=== PATIENT | female | born 1945 | race Caucasian/White ===

== ENCOUNTER 2020-12-25 13:57 | Emergency (ER) | payer MEDICARE, SELFPAY ==
[2020-12-25] VITALS (7 sets, daily range): BP systolic 105–150; BP diastolic 54–90; PULSE 85–130; RESP 18; TEMP 36.7–36.9; O2SAT 96–98; BMI 31.6
--- NOTE | 2020-12-25 | ECG_ITS ---
Test Reason : CHEST PAIN Blood Pressure : / mmHG Vent. Rate : 091 BPM Atrial Rate : 091 BPM P-R Int : 140 ms QRS Dur : 082 ms QT Int : 430 ms P-R-T Axes : 036 016 066 degrees QTc Int : 530 ms Normal sinus rhythm Low voltage QRS Nonspecific ST changes Borderline ECG When compared with ECG of 25-DEC-2020 17:06, QT has lengthened Referred By: Steffany Rothman Electronically Signed By:Cole Champagne
--- NOTE | ~2020-12-25 | XR_ITS ---
EXAMINATION: XR CHEST CLINICAL INFORMATION: Lightheadedness COMPARISON: Previous chest and right rib x-ray July 2019 TECHNIQUE: Frontal view of the chest was obtained. FINDINGS: The cardiac and mediastinal contours are stable. The lungs are clear. There is no pleural effusion or pneumothorax. There is a thoracolumbar scoliosis. Bony structures are otherwise unremarkable. XR/XR chest 1V IMPRESSION: No evidence for acute disease in chest.
--- NOTE | 2020-12-25 15:37 | ECG_ITS ---
Test Reason : CHEST PAIN Blood Pressure : / mmHG Vent. Rate : 089 BPM Atrial Rate : 089 BPM P-R Int : 142 ms QRS Dur : 084 ms QT Int : 390 ms P-R-T Axes : 037 016 065 degrees QTc Int : 474 ms Normal sinus rhythm Low voltage QRS Borderline ECG When compared with ECG of 24-JUL-2019 08:11, Vent. rate has increased BY 47 BPM QT has lengthened Referred By: Steffany Rothman Electronically Signed By:Cole Champagne
--- NOTE | 2020-12-25 15:41 | ED.GENADULT ---
HPI - General Adult General Chief complaint: General Medical Stated complaint: Nausea/vomitting/diarrea Time Seen by Provider: 12/25/20 15:25 Source: patient Mode of arrival: ambulatory History of Present Illness HPI narrative: 75-year-old female with a past medical history of MDD, familial tremor, anxiety, achalasia, abscess, presenting to the ED complaining nausea/ vomiting x1 week, and 3 large episodes of black diarrhea today. Admits to feeling lightheaded/presyncopal during BMs. Reports decreased p.o. intake. Also reports mechanical trip and fall over a fan 2 weeks ago, admits hit her head, denies LOC. Does take baby ASA. Also reports exertional SOB. Denies CP, abdominal pain, constipation, dysuria/hematuria, visual change Onset (ago): day(s) Related Data Allergies Allergy/AdvReac Type Severity Reaction Status Date / Time penicillin V Allergy Intermediate Rash Verified 12/25/20 14:02 Penicillins [PENICILLINS] Allergy Intermediate HIVES,RASH Verified 12/25/20 14:02 Review of Systems Review of Systems: Constitutional: No Fever, No Chills,+Fatigue, No Malaise ENT/Mouth: No Hearing loss, No Swallowing Difficulty Eyes: No Eye Pain, No Vision Changes Cardiovascular: No Chest Pain, No SOB, + Dyspnea on Exertion, No Edema Respiratory: No Cough, No Dyspnea Gastrointestinal: + Nausea, + Vomiting, + Diarrhea, No Constipation, No Abdominal pain, No Hematochezia, + Melena Genitourinary: No Dysuria, No Urinary Frequency, No Hematuria Musculoskeletal: No joint pain, No Myalgias Skin: No Skin Lesions, No rash Neuro: No Weakness, No Numbness, No Loss of Consciousness, + lightheadedness, No Headache Yes all other systems are reviewed and are negative Neurologic: Denies Abnormal speech present PMFSH Past Medical History Attestation statement: The following information was validated with the patient. Medical History (Updated 12/25/20 @ 23:30 by REBECA Del Valle) Abscess Achalasia Anxiety Familial tremor MDD (major depressive disorder) Surgical History (Updated 12/25/20 @ 14:09 by Kristi Mccarty RN) History of surgery on arm Social History Social History Alcohol intake: never Smoked in Last 30 Days: No Use of substances other than those prescribed or required for medical reasons: No Advance Directives: Yes Advance Directives Information Provided: Yes Advance Directives on File: No Physical Exam Vital Signs: Vital Signs: Last Vital Signs Temp 98.0 F 12/25/20 16:00 Pulse 104 H 12/25/20 23:19 Resp 18 12/25/20 19:25 BP 150/68 H 12/25/20 23:19 Pulse Ox 98 12/25/20 19:25 Body Mass Index 31.6 Const: General: cooperative, healthy appearing, no acute distress, well developed, alert and awake Orientation/consciousness: patient oriented x3 Limitations: no limitations HENMT: Head: Yes normal to inspection Ears: hearing grossly normal bilaterally General nose exam: Normal external nose present Face and sinus: Yes normal facial exam Mouth: Normal oral and palatal mucosa present Throat: Yes posterior oropharynx normal and Yes uvula midline Eyes: General: appearance normal, both eyes and all related structures Pupils: Equal, round and reactive pupils present EOM: EOMs intact bilaterally Neck: Neck: Yes normal visual inspection and Yes no meningeal signs Resp: Effort & Inspection: normal respiratory effort Auscultation: clear to auscultation bilaterally, no rales, no rhonchi and no wheezes Cardio: Rate: regular rate Heart sounds: S1 normal heart sound present and S2 normal heart sound present GI: Inspection: Yes normal to inspection Palpation (GI): Soft to palpation, nontender, no guarding and not rigid Skin: Wounds: no wounds Neuro: General: patient oriented x3, gait normal, tone normal, moves all extremities, no meningeal signs, no focal motor deficits and CN's II-XI intact bilaterally Cranial nerves: Yes Equal, round and reactive pupils present Cognition (Neuro): normal cognition Speech: No Abnormal speech present Gait exam (Neuro): Normal gait present Motor exam (neuro): 5/5 motor strength present throughout and Pronator motor function not present Coordination: [id number] test normal Romberg Test: Negative Extrem: General: Yes normal to inspection and Yes no pedal edema Course Course Course Narrative: -no leukocytosis, H&H stable XR chest 1V IMPRESSION: No evidence for acute disease in chest. -182--potassium slightly low at 3.2 > 40 mEq p.o. repletion ordered Orthostatic vital signs positive will repeat after IVF -2311--repeat troponin without 50% rise, PA unlikely -2325--repeat orthostatic vital signs negative. Results discussed with patient including worrisome signs and symptoms and strict return precautions. Discussed with patient she needs to have close follow-up with her PCP, she verbalized understanding feel safe for discharge home. Patient unable to give urine sample in the ED Medical Decision Making MDM Narrative Medical decision making narrative: 75-year-old female with a past medical history of MDD, familial tremor, anxiety, achalasia, abscess, presenting to the ED complaining nausea/ vomiting x1 week, and 3 large episodes of black diarrhea today. Admits to feeling lightheaded/presyncopal during BMs. On exam mildly tachycardic, NAD/nontoxic appearing, no focal neuro deficits, abdomen soft/nontender. Concern for GI bleed vs gastroenteritis vs dehydration vs vasovagal symptoms. Rule out infectious etiology. Low concern for ICH/fracture with fall 2 weeks ago and exam nonfocal. Plan: EKG, labs, UA, occult stool, CXR, IVF, symptomatic treatment, reassess Lab Data Result diagrams: 12/25/20 16:22 12/25/20 16:53 Labs: Lab Results 12/25/20 12/25/20 12/25/20 Range/Units 16:22 16:23 16:27 WBC 10.6 (4.8-10.8) X10*3/uL RBC 5.18 (4.20-5.50) X10*6/uL Hgb 15.0 (12.0-16.0) g/dl Hct 44.1 (37-47) % MCV 85.1 (80-98) fL MCH 29.0 (27.0-33.0) pg MCHC 34.0 (31.0-35.0) g/dl RDW 14.5 (11.0-16.0) % Plt Count 385 (160-400) X10*3/uL MPV 9.7 (9.4-12.3) fL Immature Gran % (Auto) 0.5 H (0.0-0.4) % Neut % (Auto) 67.4 (45-73) % Lymph % (Auto) 19.5 L (20-40) % [place] % (Auto) 12.3 H (2-11) % Eos % (Auto) 0.0 (0-4) % Baso % (Auto) 0.3 (0-2) % Lymph # (Auto) 2.1 (1.2-4.9) X10*3/uL [place] # (Auto) 1.3 H (0.1-1.2) X10*3/uL Eos # (Auto) 0.0 (0.0-0.4) X10*3/uL Baso # (Auto) 0.0 (0.0-0.2) X10*3/uL Abs Immat Gran (auto) 0.05 H (0.00-0.03) X10*3/uL Absolute Neuts (auto) 7.2 (2.0-8.3) X10*3/uL Absolute Nucleated RBC 0.000 (0.0-0.012) X10*3/uL Nucleated RBC % (auto) 0.0 (0.0-0.2) /100WBC PT 11.9 (9.9-13.0) SEC INR 1.0 (0.9-1.1) APTT 27.1 (24.1-38.0) SEC Sodium (135-145) mmol/L Potassium (3.3-5.1) mmol/L Chloride (96-108) mmol/L Carbon Dioxide (22-29) mmol/L Anion Gap (12-20) BUN (9-16) mg/dL Creatinine (0.5-1.4) mg/dL Estim Creat Clear Calc Estimated GFR Random Glucose (60-115) mg/dL Calcium (8.4-10.2) mg/dL Magnesium (1.6-2.6) mg/dL Total Bilirubin (0.0-1.0) mg/dL Direct Bilirubin (0.0-0.5) mg/dL AST (5-31) U/L ALT (0-31) U/L Alkaline Phosphatase (39-117) U/L Troponin I High Sens (<3.5-17.0) ng/L Total Protein (6.5-8.0) g/dL Albumin (3.5-5.0) g/dL Lipase (8-78) U/L Stool Occult Blood NEGATIVE (NEGATIVE) 12/25/20 12/25/20 12/25/20 Range/Units 16:53 18:46 22:25 WBC (4.8-10.8) X10*3/uL RBC (4.20-5.50) X10*6/uL Hgb (12.0-16.0) g/dl Hct (37-47) % MCV (80-98) fL MCH (27.0-33.0) pg MCHC (31.0-35.0) g/dl RDW (11.0-16.0) % Plt Count (160-400) X10*3/uL MPV (9.4-12.3) fL Immature Gran % (Auto) (0.0-0.4) % Neut % (Auto) (45-73) % Lymph % (Auto) (20-40) % [place] % (Auto) (2-11) % Eos % (Auto) (0-4) % Baso % (Auto) (0-2) % Lymph # (Auto) (1.2-4.9) X10*3/uL [place] # (Auto) (0.1-1.2) X10*3/uL Eos # (Auto) (0.0-0.4) X10*3/uL Baso # (Auto) (0.0-0.2) X10*3/uL Abs Immat Gran (auto) (0.00-0.03) X10*3/uL Absolute Neuts (auto) (2.0-8.3) X10*3/uL Absolute Nucleated RBC (0.0-0.012) X10*3/uL Nucleated RBC % (auto) (0.0-0.2) /100WBC PT (9.9-13.0) SEC INR (0.9-1.1) APTT (24.1-38.0) SEC Sodium 140 (135-145) mmol/L Potassium 3.2 L (3.3-5.1) mmol/L Chloride 107 (96-108) mmol/L Carbon Dioxide 22 (22-29) mmol/L Anion Gap 14 (12-20) BUN 16 (9-16) mg/dL Creatinine 0.78 (0.5-1.4) mg/dL Estim Creat Clear Calc 69.6 Estimated GFR > 60 Random Glucose 104 (60-115) mg/dL Calcium 8.4 (8.4-10.2) mg/dL Magnesium 1.9 (1.6-2.6) mg/dL Total Bilirubin 0.5 (0.0-1.0) mg/dL Direct Bilirubin 0.3 (0.0-0.5) mg/dL AST 21 (5-31) U/L ALT 23 (0-31) U/L Alkaline Phosphatase 79 (39-117) U/L Troponin I High Sens 8.4 8.1 (<3.5-17.0) ng/L Total Protein 5.6 L (6.5-8.0) g/dL Albumin 3.5 (3.5-5.0) g/dL Lipase 11 (8-78) U/L Stool Occult Blood (NEGATIVE) ECG Data Attestation: I personally reviewed and interpreted this ECG as follows: Interpretation: EKG normal sinus rhythm with a rate of 91. Low-voltage QRS. Nonischemic/no STEMI Discharge Plan Discharge Clinical Impression: Nausea & vomiting, Diarrhea Patient Disposition: Home, Self-Care Instructions: Gastroenteritis (ED) Additional Instructions: Your blood work was reassuring today in the emergency department It is very important that you stay hydrated at home, drink plenty of fluids, electrolytes, Gatorade/hours You need to follow-up with her primary care doctor Follow-up with GI as needed If her symptoms persist or worsen you have constant worsening nausea, vomiting, or diarrhea please return to the ED immediately Referrals: Olivier Noonan MD [Physician] - 3 days Chris Mcfarlane MD [Primary Care Provider] - 2 days
[2020-12-25] MEDS: ondansetron HCL 4 MG/2 ML VIAL IVPUSH (16:05)
[2020-12-25] MEDS: 0.9 % Sodium Chloride 1,000 ML 999 ML IVCONT ×2 (16:05→18:13)
[2020-12-25] MEDS: Famotidine/PF 20 MG/2 ML VIAL IVPUSH (16:05)
[2020-12-25] MEDS: Magnesium Hydrox/Alum Hydrox 30 ML ORAL.SUSP PO (16:05)
--- NOTE | 2020-12-25 16:31 | PC.NURSE ---
Iv started, labs sent. IVf started.
[2020-12-25 16:33] LABS: MANUAL DIFF FLAG NO
[2020-12-25 16:34] LABS: Basophils Percent Auto 0.3 % (0-2); Hematocrit 44.1 % (37-47); Imm Gran Abs Auto 0.05 X10*3/uL (0.00-0.03); Imm Gran Pct Auto 0.5 % (0.0-0.4); Lymphocytes Absolute Auto 2.1 X10*3/uL (1.2-4.9); Lymphocytes Percent Auto 19.5 % (20-40); Mean Corpuscular Volume 85.1 fL (80-98); Mean Platelet Volume 9.7 fL (9.4-12.3); Monocytes Absolute Auto 1.3 X10*3/uL (0.1-1.2); Monocytes Percent Auto 12.3 % (2-11); Neutrophils Absolute Auto 7.2 X10*3/uL (2.0-8.3); Neutrophils Percent Auto 67.4 % (45-73); Platelet Count 385 X10*3/uL (160-400); Red Blood Count 5.18 X10*6/uL (4.20-5.50); Red Cell Distribution Width 14.5 % (11.0-16.0); White Blood Count 10.6 X10*3/uL (4.8-10.8)
[2020-12-25 16:35] LABS: OBS Int Ctl Valid YES; OBS1 NEGATIVE (NEGATIVE)
[2020-12-25 16:41] LABS: Prothrombin Time 11.9 SEC (9.9-13.0)
[2020-12-25 16:44] LABS: Partial Thromboplastin Time 27.1 SEC (24.1-38.0)
[2020-12-25 17:24] LABS: Alanine Aminotransferase 23 U/L (0-31); Albumin Level 3.5 g/dL (3.5-5.0); Alkaline Phosphatase 79 U/L (39-117); Anion Gap 14 (12-20); Aspartate Amino Transferase 21 U/L (5-31); Bilirubin Direct 0.3 mg/dL (0.0-0.5); Bilirubin Total 0.5 mg/dL (0.0-1.0); Blood Urea Nitrogen 16 mg/dL (9-16); Calcium 8.4 mg/dL (8.4-10.2); Carbon Dioxide 22 mmol/L (22-29); Chloride 107 mmol/L (96-108); Creatinine Clr Calc Pharmacy 69.6; Estimated Glomerular Filt Rate > 60; Glucose Random 104 mg/dL (60-115); Lipase 11 U/L (8-78); Magnesium 1.9 mg/dL (1.6-2.6); Potassium 3.2 mmol/L (3.3-5.1); Sodium 140 mmol/L (135-145); Total Protein 5.6 g/dL (6.5-8.0)
[2020-12-25] MEDS: Potassium Chloride Packet 20 MEQ PACKET 40 MEQ PO (18:33)
[2020-12-25 19:18] LABS: Troponin-I High Sensitivity 8.4 ng/L (<3.5-17.0)
[2020-12-25 22:54] LABS: Troponin-I High Sensitivity 8.1 ng/L (<3.5-17.0)
== END 2020-12-25 23:57 | disposition home or self-care (01) ==
PROVIDERS: Physician Assistant; Emergency Provider Internal Medicine; PCP Internal Medicine
DX: R11.2 Nausea with vomiting, unspecified (principal); R19.7 Diarrhea, unspecified; E87.6 Hypokalemia; Z79.82 Long term (current) use of aspirin
CPT/HCPCS: 36415; 71045; 80048; 80076; 82272; 83690; 83735; 84484; 85025; 85610; 85730; 93005; 96361; 96374; 96375; 99285; J2405

== ENCOUNTER 2021-01-17 11:29 | Emergency (ER) | payer MEDICARE, SELFPAY ==
--- NOTE | ~2021-01-17 | XR_ITS ---
EXAMINATION: XR CHEST CLINICAL INFORMATION: Weakness COMPARISON: Previous chest x-ray most recent 12/25/2020 TECHNIQUE: Frontal view of the chest was obtained. FINDINGS: The cardiac and mediastinal contours are stable. The lungs are clear. There is no pleural effusion or pneumothorax. There is a thoracolumbar scoliosis. Bony structures are otherwise unremarkable. XR/XR chest 1V IMPRESSION: No evidence for acute disease in the chest.
--- NOTE | ~2021-01-17 | CT_ITS ---
EXAMINATION: CT ABDOMEN AND PELVIS WITH CONTRAST CLINICAL INFORMATION: Intermittent vomiting and diarrhea COMPARISON: None TECHNIQUE: Multidetector volumetric images were obtained from the superior aspect of the liver through the pubic symphysis following administration 85 mL of Omnipaque 350 intravenous contrast. Sagittal and coronal reformatted images were obtained on the technologist's workstation. Oral contrast: Yes This CT examination was performed using dose optimization techniques as appropriate, variously including the following: *Automated exposure control *Adjustment of mA and/or kV according to patient size (this includes techniques or standardized protocols for targeted exams where dose is matched to indication/reason for exam; i.e. extremities or head) *Use of iterative reconstruction technique DLP: 588 mGy-cm FINDINGS: LUNG BASES: The lung bases are clear. LIVER, GALLBLADDER, AND BILIARY TREE: The liver is normal in size, shape, and attenuation. No focal hepatic lesion or biliary ductal dilatation is present. The gallbladder is unremarkable with no evidence of radiopaque gallstones, gallbladder wall thickening, or obvious pericholecystic inflammatory changes. PANCREAS: Unremarkable. SPLEEN: Unremarkable. ADRENAL GLANDS: Unremarkable. KIDNEYS AND URETERS: There are bilateral renal peripelvic cysts, left greater than right. Kidneys are otherwise unremarkable. BLADDER: Unremarkable. GASTROINTESTINAL TRACT: There is diverticulosis of the colon. No evidence of diverticulitis is seen. There is question of mild bowel wall thickening or colitis of the colon, particularly involving the proximal colon. Bowel is normal in caliber without evidence of obstruction. Small and large bowel is otherwise unremarkable. The appendix is unremarkable. There is a large esophageal hernia. ABDOMINAL WALL: No significant hernia is appreciated. LYMPH NODES: Normal. VASCULAR: Unremarkable. PELVIC VISCERA: There is low-attenuation seen centrally in the uterus suggestive of endometrial fluid or thickening. Endometrial thickness measures 1 cm which is abnormally thickened for a postmenopausal patient. OSSEOUS STRUCTURES: There is curvature of the lumbar spine to the left. Degenerative disc disease at L5-S1. CT/CT abdomen pelvis w con IMPRESSION: Question mild colitis. Diverticulosis. No evidence of diverticulitis. Abnormally thickened endometrium for a postmenopausal patient. Follow-up pelvic ultrasound recommended. Renal peripelvic cysts.
[2021-01-17 11:43] VITALS: BP 130/87; PULSE 132; RESP 16; TEMP 36; O2SAT 95; BMI 26.4
--- NOTE | 2021-01-17 12:27 | ECG_ITS ---
Test Reason : NAUSEA Blood Pressure : / mmHG Vent. Rate : 093 BPM Atrial Rate : 093 BPM P-R Int : 160 ms QRS Dur : 078 ms QT Int : 378 ms P-R-T Axes : 045 017 045 degrees QTc Int : 469 ms Normal sinus rhythm Normal ECG When compared with ECG of 25-DEC-2020 17:06, QT has shortened Referred By: Alpesh Jones Electronically Signed By:Cole Champagne
[2021-01-17 12:36] VITALS: BP 145/84; PULSE 110; RESP 16; O2SAT 98
[2021-01-17] MEDS: 0.9 % Sodium Chloride 1,000 ML 999 ML IV (12:37)
[2021-01-17 12:46] LABS: MANUAL DIFF FLAG NO
[2021-01-17 12:47] LABS: Basophils Percent Auto 0.4 % (0-2); Hematocrit 42.4 % (37-47); Hemoglobin 14.1 g/dl (12.0-16.0); Imm Gran Abs Auto 0.02 X10*3/uL (0.00-0.03); Imm Gran Pct Auto 0.2 % (0.0-0.4); Lymphocytes Absolute Auto 1.7 X10*3/uL (1.2-4.9); Lymphocytes Percent Auto 19.7 % (20-40); Mean Corpuscular HGB Conc 33.3 g/dl (31.0-35.0); Mean Corpuscular Hemoglobin 28.4 pg (27.0-33.0); Mean Corpuscular Volume 85.5 fL (80-98); Mean Platelet Volume 9.2 fL (9.4-12.3); Monocytes Absolute Auto 0.9 X10*3/uL (0.1-1.2); Monocytes Percent Auto 10.2 % (2-11); Neutrophils Absolute Auto 5.9 X10*3/uL (2.0-8.3); Neutrophils Percent Auto 69.5 % (45-73); Platelet Count 509 X10*3/uL (160-400); Red Blood Count 4.96 X10*6/uL (4.20-5.50); Red Cell Distribution Width 15.4 % (11.0-16.0); White Blood Count 8.5 X10*3/uL (4.8-10.8)
--- NOTE | 2021-01-17 12:57 | ED.GENADULT ---
HPI - General Adult General Chief complaint: Weakness Stated complaint: dehydrated Time Seen by Provider: 01/17/21 12:27 Source: patient Limitations: no limitations History of Present Illness HPI narrative: This is a 75-year-old female who had had a fall in early December and subsequently developed diarrhea. The patient was seen here December 25 for diarrhea and what she described as black colored stool. The patient was discharged. She subsequent sore primary care physician put her on Imodium. The patient reports that since then she has had intermittent diarrhea as well as intermittent vomiting. She says that she has abdominal pain off and on but not constantly. She notes that 1 day she will be able to tolerate p.o. so the next day she vomited everything up. She also notes that she feels more winded with exertion. She denies any cough or fever. She notes that today her diarrhea. More black. She went to her primary care physician today noted that she appeared dehydrated and referred her in for evaluation. Patient denies any abdominal distension. She denies any dysuria or urinary frequency, has had some vaginal itching. She denies any swelling in her legs. Related Data Previous Rx's Medication Instructions Recorded loperamide 2 mg capsule 2 mg PO Q6H PRN #20 cap 01/17/21 Allergies Allergy/AdvReac Type Severity Reaction Status Date / Time penicillin V Allergy Intermediate Rash Verified 01/17/21 11:43 Penicillins [PENICILLINS] Allergy Intermediate HIVES,RASH Verified 01/17/21 11:43 Review of Systems Review of Systems: Yes all other systems are reviewed and are negative Constitutional: Constitutional: Reports as per HPI and Denies fever(s) Eyes: Eyes: Reports as per HPI and Reports no additional eye complaints ENT: Reports system reviewed and no additional complaints, except as documented, Reports as per HPI, Denies nasal congestion, Denies nasal discharge and Denies sore throat Cardiovascular: Cardiovascular: Reports as per HPI, Denies chest pain and Reports dyspnea (On exertion) Respiratory: Respiratory: Reports as per HPI, Denies cough and Reports dyspnea (On exertion) Gastrointestinal: Gastrointestinal: Reports as per HPI, Reports abdominal pain, Reports diarrhea and Reports vomiting Genitourinary: Genitourinary: Reports as per HPI, Denies hematuria, Denies urinary frequency, Denies dysuria and Reports vaginal pruritus Musculoskeletal: Musculoskeletal: Reports no additional musculoskeletal complaints and Denies numbness Integumentary/Breasts: Skin/Breast: Reports as per HPI and Denies rash Neurologic: Reports as per HPI, Denies focal weakness, Denies numbness and Denies Sensory deficit (Neuro) Psychiatric: Psychiatric: Reports no additional psychiatric complaints and Reports as per HPI Endocrine: Endocrine: Reports no additional endocrine complaints and Reports as per HPI Hematologic/Lymphatic: Hematologic/Lymphatic: Reports no additional hematologic/lymphatic complaints, Reports as per HPI and Reports other (No peripheral edema) [facility] Past Medical History Medical History (Updated 01/17/21 @ 17:18 by Alpesh Jones MD) Abscess Achalasia Anxiety Familial tremor MDD (major depressive disorder) Surgical History (Updated 12/25/20 @ 14:09 by Kristi Mccarty RN) History of surgery on arm Social History Social History Alcohol intake: never Advance Directives: No Advance Directives Information Provided: No Physical Exam Vital Signs: Vital Signs: Last Vital Signs Temp 98.2 F 01/17/21 15:31 Pulse 94 01/17/21 17:45 Resp 16 01/17/21 17:45 BP 124/76 01/17/21 17:45 Pulse Ox 95 01/17/21 17:45 Body Mass Index 26.4 Const: General: cooperative, no acute distress and alert Orientation/consciousness: patient oriented x3 HENMT: Head: Yes normal to inspection Eyes: General: appearance normal, both eyes and all related structures Eyelids: Yes eyelids normal Conjunctivae: conjunctivae normal Pupils: Equal, round and reactive pupils present Neck: Neck: Yes normal visual inspection and Yes supple Chest: Chest palpation & inspection: normal inspection of the chest Resp: Effort & Inspection: normal respiratory effort Auscultation: clear to auscultation bilaterally Cardio: Rate: regular rate Rhythm: regular rhythm Heart sounds: S1 normal heart sound present, S2 normal heart sound present, no gallops, no murmurs and no rubs GI: Palpation (GI): Soft to palpation, nontender and Other GI palpation findings present (Non-distended) Auscultation: normal bowel sounds Skin: General skin exam: no rashes or lesions noted Neuro: General: patient oriented x3, no focal motor deficits and CN's II-XI intact bilaterally Cranial nerves: Yes Equal, round and reactive pupils present Cognition (Neuro): normal cognition Motor exam (neuro): 5/5 motor strength present throughout Sensory Exam: No Sensory deficit (Neuro) Extrem: General: Yes normal to inspection and Yes no pedal edema Psych: Appearance: grossly normal Affect: normal affect Medical Decision Making MDM Narrative Medical decision making narrative: Patient appeared anxious, initially had a heart rate of 130, however this came down on its own even prior to any medication or IV fluids. Patient reports vomiting and diarrhea however BUN and creatinine are normal, normal ratio. Blood pressure is normal. CBC normal. EKG was normal. Because of the patient's intermittent vomiting diarrhea CT of the abdomen pelvis was done with IV contrast. This showed a question of colonic thickening consistent with colitis. Recommend GI follow-up. Patient was evaluated in the ED by Dr. Mora of Psychiatry, who knows this patient well. He believes the patient may be having withdrawal from SSRI as she may not be absorbing the Effexor XR. His plan is to switch her to regular Effexor 100 mg 1/2 tab b.i.d. and also started on lorazepam 0.5 mg p.o. t.i.d. I do not believe the patient needs medical admission as she is not actually dehydrated and primarily seems to have issues related to the psychiatric concerns. She does have GI follow-up, but not until March, which appears to be frustrated her. I am advising her to call and get follow-up sooner, mention that she has been seen in the ED twice and needs more urgent follow-up. Patient's urinalysis did show number of white blood cells as well as RBCs. This has been present on prior urinalysis. Numerous squamous epithelial cells also noted. Patient without UTI symptoms. Will withhold antibiotics pending culture, especially to the patient's diarrhea. Lab Data Result diagrams: 01/17/21 12:35 01/17/21 12:35 Labs: Lab Results 01/17/21 01/17/21 01/17/21 Range/Units 12:35 12:35 16:37 WBC 8.5 (4.8-10.8) X10*3/uL RBC 4.96 (4.20-5.50) X10*6/uL Hgb 14.1 (12.0-16.0) g/dl Hct 42.4 (37-47) % MCV 85.5 (80-98) fL MCH 28.4 (27.0-33.0) pg MCHC 33.3 (31.0-35.0) g/dl RDW 15.4 (11.0-16.0) % Plt Count 509 H D (160-400) X10*3/uL MPV 9.2 L (9.4-12.3) fL Immature Gran % (Auto) 0.2 (0.0-0.4) % Neut % (Auto) 69.5 (45-73) % Lymph % (Auto) 19.7 L (20-40) % [place] % (Auto) 10.2 (2-11) % Eos % (Auto) 0.0 (0-4) % Baso % (Auto) 0.4 (0-2) % Lymph # (Auto) 1.7 (1.2-4.9) X10*3/uL [place] # (Auto) 0.9 (0.1-1.2) X10*3/uL Eos # (Auto) 0.0 (0.0-0.4) X10*3/uL Baso # (Auto) 0.0 (0.0-0.2) X10*3/uL Abs Immat Gran (auto) 0.02 (0.00-0.03) X10*3/uL Absolute Neuts (auto) 5.9 (2.0-8.3) X10*3/uL Absolute Nucleated RBC 0.000 (0.0-0.012) X10*3/uL Nucleated RBC % (auto) 0.0 (0.0-0.2) /100WBC Sodium 140 (135-145) mmol/L Potassium 4.0 D (3.3-5.1) mmol/L Chloride 104 (96-108) mmol/L Carbon Dioxide 21 L (22-29) mmol/L Anion Gap 19 (12-20) BUN 10 (9-16) mg/dL Creatinine 0.77 (0.5-1.4) mg/dL Estim Creat Clear Calc 62.5 Estimated GFR > 60 Random Glucose 107 (60-115) mg/dL Calcium 9.6 D (8.4-10.2) mg/dL Magnesium 1.8 (1.6-2.6) mg/dL Total Bilirubin 0.5 (0.0-1.0) mg/dL AST 22 (5-31) U/L ALT 15 (0-31) U/L Alkaline Phosphatase 94 (39-117) U/L Total Protein 6.8 D (6.5-8.0) g/dL Albumin 3.7 (3.5-5.0) g/dL Urine Color Urine Appearance Urine pH (5.0-8.0) Ur Specific [place] (1.005-1.025) Urine Protein (NEG-TRACE) MG/DL Urine Glucose (UA) (NEG) MG/DL Urine Ketones (NEG) MG/DL Urine Blood (NEG) Urine Nitrite (NEG) Ur Leukocyte Esterase (NEG) Urine RBC (0) /HPF Urine WBC (0-4) /HPF Ur Squamous Epith Cells /LPF Urine Bacteria /LPF COVID-19 ([facility]) Negative (Negative) COVID-19 Clin Com See Note 01/17/21 Range/Units 16:47 WBC (4.8-10.8) X10*3/uL RBC (4.20-5.50) X10*6/uL Hgb (12.0-16.0) g/dl Hct (37-47) % MCV (80-98) fL MCH (27.0-33.0) pg MCHC (31.0-35.0) g/dl RDW (11.0-16.0) % Plt Count (160-400) X10*3/uL MPV (9.4-12.3) fL Immature Gran % (Auto) (0.0-0.4) % Neut % (Auto) (45-73) % Lymph % (Auto) (20-40) % [place] % (Auto) (2-11) % Eos % (Auto) (0-4) % Baso % (Auto) (0-2) % Lymph # (Auto) (1.2-4.9) X10*3/uL [place] # (Auto) (0.1-1.2) X10*3/uL Eos # (Auto) (0.0-0.4) X10*3/uL Baso # (Auto) (0.0-0.2) X10*3/uL Abs Immat Gran (auto) (0.00-0.03) X10*3/uL Absolute Neuts (auto) (2.0-8.3) X10*3/uL Absolute Nucleated RBC (0.0-0.012) X10*3/uL Nucleated RBC % (auto) (0.0-0.2) /100WBC Sodium (135-145) mmol/L Potassium (3.3-5.1) mmol/L Chloride (96-108) mmol/L Carbon Dioxide (22-29) mmol/L Anion Gap (12-20) BUN (9-16) mg/dL Creatinine (0.5-1.4) mg/dL Estim Creat Clear Calc Estimated GFR Random Glucose (60-115) mg/dL Calcium (8.4-10.2) mg/dL Magnesium (1.6-2.6) mg/dL Total Bilirubin (0.0-1.0) mg/dL AST (5-31) U/L ALT (0-31) U/L Alkaline Phosphatase (39-117) U/L Total Protein (6.5-8.0) g/dL Albumin (3.5-5.0) g/dL Urine Color YELLOW Urine Appearance HAZY Urine pH 6.5 (5.0-8.0) Ur Specific [place] <= 1.005 (1.005-1.025) Urine Protein TRACE (NEG-TRACE) MG/DL Urine Glucose (UA) NEG (NEG) MG/DL Urine Ketones >=80 (NEG) MG/DL Urine Blood TRACE (NEG) Urine Nitrite NEG (NEG) Ur Leukocyte Esterase 1+ H (NEG) Urine RBC 5-9 H (0) /HPF Urine WBC 10-14 H (0-4) /HPF Ur Squamous Epith Cells 3+ /LPF Urine Bacteria 1+ /LPF COVID-19 ([facility]) (Negative) COVID-19 Clin Com ECG Data Attestation: I personally reviewed and interpreted this ECG as follows: Interpretation: Sinus rhythm with a rate of 93. Baseline artifact. No ST elevation depression. No apparent ectopy. Normal QRS axis. Discharge Plan Discharge Clinical Impression: Anxiety, Diarrhea Patient Disposition: Home, Self-Care Instructions: Chronic Diarrhea (ED), Anxiety (ED) Additional Instructions: Stop your Effexor XR as instructed by Dr. Mora, and start regular Effexor 100 mg tablet, 1/2 tablet twice a day. Also start lorazepam 0.5 mg 3 times a day as prescribed by Dr. Mora. Follow-up with Gastroenterology, call tomorrow for an appointment and states the need to be seen in the next week, that you are evaluated here and that close follow-up is recommended. Drink plenty of fluids, taking a few sips at a time. Return for any new or worsened symptoms such as inability to hold down fluids. Prescriptions: New loperamide 2 mg capsule 2 mg PO Q6H PRN (Reason: loose stool) Qty: 20 RF: 0
[2021-01-17 13:15] LABS: Alanine Aminotransferase 15 U/L (0-31); Albumin Level 3.7 g/dL (3.5-5.0); Alkaline Phosphatase 94 U/L (39-117); Anion Gap 19 (12-20); Aspartate Amino Transferase 22 U/L (5-31); Bilirubin Total 0.5 mg/dL (0.0-1.0); Blood Urea Nitrogen 10 mg/dL (9-16); Calcium 9.6 mg/dL (8.4-10.2); Carbon Dioxide 21 mmol/L (22-29); Chloride 104 mmol/L (96-108); Creatinine Clr Calc Pharmacy 62.5; Estimated Glomerular Filt Rate > 60; Glucose Random 107 mg/dL (60-115); Magnesium 1.8 mg/dL (1.6-2.6); Sodium 140 mmol/L (135-145); Total Protein 6.8 g/dL (6.5-8.0)
[2021-01-17 13:23] VITALS: BP 136/74; PULSE 109; RESP 16; O2SAT 98
[2021-01-17] MEDS: iohexoL 350 MG/ML 100 ML INFUS..BTL 85 ML IV (13:52)
[2021-01-17 15:31] VITALS: BP 144/76; PULSE 97; RESP 20; TEMP 36.8; O2SAT 99
[2021-01-17] MEDS: LORazepam 2 MG/ML VIAL 0.25 MG IVPUSH (15:49)
[2021-01-17 17:04] LABS: Glucose Urine UA NEG (NEG); Leukocyte Esterase Urine 1+ (NEG); Nitrite Urine NEG (NEG); PH 6.5 (5.0-8.0); Specific Gravity - Urine <= 1.005 (1.005-1.025); UACC Culture Trigger YES; Urine Blood TRACE (NEG); Urine Ketones >=80 MG/DL (NEG); Urine Protein TRACE MG/DL (NEG-TRACE)
[2021-01-17 17:06] LABS: Appearance Urine HAZY; Color Urine YELLOW
[2021-01-17 17:06] LABS: COVID-19 Test Negative (Negative); IDNOW Serial# 08D9AD1C
[2021-01-17 17:45] VITALS: BP 124/76; PULSE 94; RESP 16; O2SAT 95
[2021-01-17 17:55] LABS: Bacteria Urine 1+ /LPF; Squamous Epithelial Cell Urine 3+ /LPF
[2021-01-17] MEDS: Venlafaxine HCL 25 MG TABLET PO (18:33)
== END 2021-01-17 18:44 | disposition home or self-care (01) ==
PROVIDERS: Emergency Provider Emergency Medicine; PCP Internal Medicine
DX: R19.7 Diarrhea, unspecified (principal); F41.9 Anxiety disorder, unspecified; Z20.822 Contact with and (suspected) exposure to COVID-19
CPT/HCPCS: 36415; 71045; 74177; 80053; 81001; 81003; 83735; 85025; 87086; 87635; 93005; 96361; 96374; 99284; 99285; J2060; Q9967

== ENCOUNTER 2021-01-26 12:13 | Day surgery (SDC) | payer MEDICARE, SELFPAY ==
--- NOTE | 2021-01-26 12:33 | P.CONAN_ITS ---
[facility] Past Medical History Medical History (Updated 01/18/21 @ 00:02 by Shazia [place]) Abscess Achalasia Anxiety Familial tremor MDD (major depressive disorder) Surgical History Surgical History (Updated 12/25/20 @ 14:09 by Kristi Mccarty RN) History of surgery on arm Social History Social History Alcohol intake: never Advance Directives: No Advance Directives Information Provided: Yes Meds Allergies Allergy/AdvReac Type Severity Reaction Status Date / Time penicillin V Allergy Intermediate Rash Verified 01/17/21 11:43 Penicillins [PENICILLINS] Allergy Intermediate HIVES,RASH Verified 01/17/21 11:43 Active Medications: Current Medications Generic Name Dose Route Start Last Admin Trade Name Freq PRN Reason Stop Dose Admin Lactated Ringer's 1,000 mls @ 50 mls/hr 01/26/21 08:00 Lr IVCONT .Q20H MADONNA Exam Exam Date and Time: January 26, 2021 1233 Airway Mallampati Class: II TM Dist: >3cm Neck ROM: Full Partial: Upper and Lower
--- NOTE | 2021-01-26 12:35 | MHC.SHP ---
Pre-Procedural Eval Section A Date of Service: 01/26/21 The patient is an INPATIENT: No Changes since office visit: No Cold of Flu in the past 2 weeks, No New Medical Problems, No Changes in Medication and No Patient answered all questions The History & Physical has been completed within 30 days and I have reviewed it.: Yes Section B Chief Complaint: dysphagia,abnormal findings on image Allergies: Allergies Allergy/AdvReac Type Severity Reaction Status Date / Time penicillin V Allergy Intermediate Rash Verified 01/17/21 11:43 Penicillins [PENICILLINS] Allergy Intermediate HIVES,RASH Verified 01/17/21 11:43 Plan I have reviewed the history and physical and performed a pertinent physical examination on my patient. No changes have occurred unless specified.
[2021-01-26 12:41] VITALS: BP 154/74; PULSE 111; RESP 18; TEMP 36.7; O2SAT 97
[2021-01-26 13:02] VITALS: BMI 26.4
--- NOTE | 2021-01-26 13:02 | PC.NURSE ---
PATIENT STATES SHE ONLY WAS ABLE TO COMPLETE 1/2 OF HER PREP FOR THE COLONOSCOPY. DR. CARL ADVISED AND PATIENT WAS GIVEN A FLEETS ENEMA. ONLY APPROX 1/3 OF ENEMA WENT IN. PATIENT ONLY HAD BRIGHT RED BLOOD DROPS (APPROX 6 TO [address] CARL AWARE OF RESULTS. PATIENT ALSO NOTED TO HAVE TREMORS.
[2021-01-26] MEDS: Lactated Ringers 1,000 ML 50 ML IVCONT (13:10)
--- NOTE | 2021-01-26 13:47 | P.BOP_ITS ---
Brief Operative Note Date of Service: 01/26/21 Pre-op diagnosis: dysphagia, abnl ct scan colon Post-op diagnosis: same Surgeon: Michi Neri Anesthesia: MAC Was an Office Administration Instructor used for this Procedure?: No Estimated blood loss (mL): 2 Pathology: other (see nurses notes) Condition: stable Disposition: PACU
[2021-01-26 13:49] VITALS: BP 98/61; PULSE 99; RESP 16; TEMP 36.1; O2SAT 99
[2021-01-26 14:05] VITALS: BP 116/75; PULSE 98; RESP 16; TEMP 36.1; O2SAT 98
[2021-01-26 14:16] VITALS: BP 136/79; PULSE 94; RESP 16; TEMP 36.1; O2SAT 98
--- NOTE | 2021-01-26 15:00 | OP_ITS ---
SURGEON: Michi Neri MD INDICATIONS: 1. Dysphagia and history of achalasia. 2. Diarrhea and abnormal CT scan of the colon suggesting colitis. PREOPERATIVE DIAGNOSIS: POSTOPERATIVE DIAGNOSIS: PROCEDURE PERFORMED: ESTIMATED BLOOD LOSS: COMPLICATIONS: ANESTHESIA: ASSISTANTS: SPECIMENS: PROCEDURES PERFORMED: 1. Upper endoscopy with balloon dilation and biopsy. 2. Colonoscopy to the terminal ileum with biopsy and snare polypectomy. MEDICATIONS: Monitored anesthesia care. DESCRIPTION OF PROCEDURE: History and physical performed. The risks and benefits of the procedure were explained to the patient. Informed consent was obtained. The patient was placed in the left lateral decubitus position. The Olympus video gastroscope was introduced into the esophagus, stomach, and duodenum. Examination was performed and the scope was removed. She was repositioned for colonoscopy. Digital rectal exam was performed and was found to be normal. The Olympus pediatric video colonoscope was introduced into the rectum and advanced to the cecum without difficulty. The cecum was identified by transillumination, palpation, and identification of ileocecal valve. Examination was performed and the scope was removed. She tolerated both procedures well and was taken to recovery area in stable condition. FINDINGS: UPPER ENDOSCOPY: Esophagus: The esophagus was dilated consistent with a known history of achalasia. There was ulceration over the distal 2/3 of the esophagus with cobblestoning of the mucosa. The scope did pass through the EG junction without difficulty. Stomach: The stomach showed no evidence of masses, ulcers, or polyps. Duodenum: There was erosive duodenitis involving the second portion of the duodenum. Biopsies were obtained from the antrum of the stomach and from the EG junction following balloon dilation. Balloon dilation of the EG junction was done with an 18 to 20 mm balloon inflated at both 18 and 20 mm pressures for 60 seconds each and then released. COLONOSCOPY: The terminal ileum was examined and appeared normal. There was no definite colitis identified. The mucosa was somewhat friable in the right colon. Biopsies were obtained from the right colon and left colon. There was an 8 mm polyp at about 35 cm from the anal verge, that was removed using a snare. There was moderate sigmoid diverticulosis. Retroflexed examination showed moderate-sized internal hemorrhoids. IMPRESSION: 1. Erosive esophagitis. 2. Achalasia. 3. Erosive duodenitis. 4. Colon polyp. 5. Diverticulosis. RECOMMENDATIONS: 1. Follow up the biopsy results. 2. If dysphagia persists, she will need referral for achalasia dilation and/or consideration of POEM surgery. MD JANN Felipe/DEMI / [id number]
== END 2021-01-26 15:09 | disposition home or self-care (01) ==
PROVIDERS: PCP Internal Medicine; Visit Provider Internal Medicine Gastroenterology
PROC: (CPT 45385; principal; 2021-01-26 13:40)
PROC: 0DJD8ZZ Inspection of Lower Intestinal Tract, Via Natural or Artificial Opening Endoscopic (ICD-10-PCS; CPT 45378; 2021-01-26 13:40)
DX: R93.3 Abnormal findings on diagnostic imaging of other parts of digestive tract (principal); R19.4 Change in bowel habit; D12.5 Benign neoplasm of sigmoid colon; K52.9 Noninfective gastroenteritis and colitis, unspecified; K64.8 Other hemorrhoids; K22.0 Achalasia of cardia; K22.10 Ulcer of esophagus without bleeding; K29.80 Duodenitis without bleeding; K57.30 Diverticulosis of large intestine without perforation or abscess without bleeding; K21.9 Gastro-esophageal reflux disease without esophagitis; G25.0 Essential tremor; F32.9 Major depressive disorder, single episode, unspecified; Z66 Do not resuscitate; Z88.0 Allergy status to penicillin; Z79.899 Other long term (current) drug therapy
CPT/HCPCS: 45385; 45380; 43249; 43239; 88305; 88312; 88342; C1726